=== PATIENT | female | born 1995 | race Caucasian/White ===

== ENCOUNTER 2022-09-24 22:26 | Emergency (ER) | payer MEDICAID ==
[~2022-09-24] VITALS: Ht 158.8 cm; Wt 90.9 kg
[2022-09-24 22:51] VITALS: BP 122/64; PULSE 94; RESP 22; TEMP 98.3; O2SAT 97
--- NOTE | 2022-09-24 22:54 | NUR ---
PT IN THE BATHROOM FOR URINE COLLECTION
--- NOTE | 2022-09-24 23:00 | NUR ---
PT TO LOBBY
--- NOTE | 2022-09-24 23:09 | NUR ---
URINE TO LAB
[2022-09-24 23:33] LABS: APPEARANCE,URINE CLEAR (CLEAR); BILIRUBIN,URINE NEGATIVE (NEGATIVE); BLOOD, URINE NEGATIVE (NEGATIVE); COLOR,URINE YELLOW (YELLOW); LEUKOCYTE ESTERASE ,URINE 2+ (NEGATIVE); NITRITE, URINE NEGATIVE (NEGATIVE); UGLUCOSE NEGATIVE (NEGATIVE)
[2022-09-24 23:38] LABS: RBC,URINE 0-5 /HPF (0-5)
[2022-09-25] MEDS ORDERED: ONDANSETRON 4 MG/2 ML VIAL IVP ONE (01:25)
[2022-09-25] MEDS ORDERED: MORPHINE SULFATE 4 MG/ML SYR IVP ONE (01:25)
[2022-09-25] MEDS ORDERED: NACL 0.9% 1,000 ML IV ONE (01:25)
--- NOTE | 2022-09-25 01:40 | NUR ---
c/o right sided flank pain 11/24 and n/v that started today. denies pmhx or allergies.
[2022-09-25 01:42] LABS: BASOPHILS # (AUTO) 0.1 K/uL (0.00-0.22); BASOPHILS % (AUTO) 1.2 % (0.0-2.0); EOSINOPHILS # (AUTO) 0.2 K/uL (0-0.4); EOSINOPHILS % (AUTO) 2.1 % (0.0-4.0); HEMATOCRIT 36.8 % (36-48); LYMPHOCYTES # (AUTO) 2.6 K/uL (2.5-16.5); LYMPHOCYTES % (AUTO) 27.3 % (20.5-51.1); MEAN CORPUSCULAR HEMOGLOBIN 25 pg (27-31); MEAN CORPUSCULAR HGB CONC 33 g/dL (33-37); MONOCYTES # (AUTO) 0.6 K/uL (0.8-1.0); MONOCYTES % (AUTO) 6.2 % (1.7-9.3); NEUTROPHILS # (AUTO) 5.9 K/uL (1.8-7.7); NEUTROPHILS % (AUTO) 63.2 % (42.2-75.2); PLATELET COUNT (AUTO) 240 K/uL (140-450); RED CELL DISTRIBUTION WIDTH 16.3 % (11.6-13.7); WHITE BLOOD COUNT (AUTO) 9.4 K/uL (4.8-10.8)
[2022-09-25 02:00] LABS: ALBUMIN 4.2 g/dL (3.4-5.0); CARBON DIOXIDE 28.7 mmol/L (21-32); CREATININE 0.9 mg/dL (0.6-1.3); POTASSIUM 3.7 mmol/L (3.5-5.1); TOTAL BILIRUBIN 0.3 mg/dL (0.0-1.0)
[2022-09-25] MEDS ORDERED: KETOROLAC 15 MG/ML VIAL IVP ONE (05:40)
[2022-09-25] MEDS ORDERED: CEPH-588 PO (05:58)
[2022-09-25] MEDS ORDERED: NAPR-54 PO (05:58)
--- NOTE | 2022-09-25 06:16 | NUR ---
Patient discharged with v/s stable. Written and verbal after care instructions given and explained. Patient verbalized understanding. Ambulatory with steady gait. All questions addressed prior to discharge. Advised to follow up with PMD. Addendum: 09/25/22 at 0618 by [email or web address] Rx of keflex and naproxen given. Patient educated on indication of medication including possible reaction and side effects. Opportunity to ask questions provided and answered.
[2022-09-25 06:17] VITALS: BP 114/74; PULSE 80; RESP 18; TEMP 98.3; O2SAT 98
== END 2022-09-25 06:17 | disposition home or self-care (01) ==
LOC: MED 22:26 → EDSEX 22:26 → MED 09-25 06:17
DX: N39.0 Urinary tract infection, site not specified (principal); Z79.899 Other long term (current) drug therapy
CPT/HCPCS: 36415; 80053; 81001; 81025; 83690; 85025; 87086; 96374; 96375; 99285; J1885; J2270; J2405; J7030

== ENCOUNTER 2023-01-04 12:06 | Emergency (ER) | payer MEDICAID, OTHER ==
[~2023-01-04] VITALS: Ht 160 cm; Wt 88.9 kg
[~2023-01-04 12:06] MED LIST: CEPH-588 PO; NAPR-54 PO
[2023-01-04 12:46] VITALS: BP 121/76; PULSE 115; RESP 20; TEMP 98.7; O2SAT 99
[2023-01-04 14:38] LABS: FLU A ANTIGEN negative (NEGATIVE); FLU B ANTIGEN negative (NEGATIVE)
[2023-01-04] MEDS ORDERED: BENZ100C6 PO (14:47)
[2023-01-04] MEDS ORDERED: NIRM1TAB5 PO (14:47)
[2023-01-04] MEDS ORDERED: IBUP-2213 PO (14:47)
[2023-01-04] MEDS ORDERED: ALBU0.0912 IH (14:47)
== END 2023-01-04 14:49 | disposition home or self-care (01) ==
LOC: MED 12:06
DX: U07.1 COVID-19 (principal); Z79.899 Other long term (current) drug therapy
CPT/HCPCS: 71045; 99284

== ENCOUNTER 2023-02-20 10:06 | Emergency (ER) | payer OTHER ==
[~2023-02-20] VITALS: Ht 162.6 cm; Wt 89.4 kg
[~2023-02-20 10:06] MED LIST changes: +ALBU0.0912 IH; +BENZ100C6 PO; +IBUP-2213 PO; +NIRM1TAB5 PO
[2023-02-20 10:13] VITALS: BP 96/66; PULSE 74; RESP 16; TEMP 98; O2SAT 98
[2023-02-20] MEDS ORDERED: NACL 0.9% 1,000 ML IV ONE (11:15)
[2023-02-20] MEDS ORDERED: ONDANSETRON 4 MG/2 ML VIAL IVP ONE (11:15)
[2023-02-20] MEDS ORDERED: MORPHINE SULFATE 4 MG/ML SYR IVP ONE (11:15)
[2023-02-20 11:32] VITALS: TEMP 98
[2023-02-20 11:38] LABS: BASOPHILS % (AUTO) 0.5 % (0.0-2.0); EOSINOPHILS # (AUTO) 0.1 K/uL (0-0.4); EOSINOPHILS % (AUTO) 1.1 % (0.0-4.0); HEMATOCRIT 37.6 % (36-48); HEMOGLOBIN 12.2 g/dL (12.0-16.0); LYMPHOCYTES # (AUTO) 2.1 K/uL (2.5-16.5); LYMPHOCYTES % (AUTO) 27.9 % (20.5-51.1); MEAN CORPUSCULAR HEMOGLOBIN 25 pg (27-31); MEAN CORPUSCULAR HGB CONC 32 g/dL (33-37); MEAN CORPUSCULAR VOLUME 75.8 fL (80-94); MONOCYTES # (AUTO) 0.5 K/uL (0.8-1.0); MONOCYTES % (AUTO) 7.4 % (1.7-9.3); NEUTROPHILS # (AUTO) 4.7 K/uL (1.8-7.7); NEUTROPHILS % (AUTO) 63.1 % (42.2-75.2); PLATELET COUNT (AUTO) 254 K/uL (140-450); RED BLOOD CELL COUNT(AUTO) 4.95 MIL/uL (4.20-5.40); RED CELL DISTRIBUTION WIDTH 17.4 % (11.6-13.7); WHITE BLOOD COUNT (AUTO) 7.4 K/uL (4.8-10.8)
[2023-02-20 11:52] LABS: ANION GAP 10.4 (8-16); CARBON DIOXIDE 28.5 mmol/L (21-32); CREATININE 0.8 mg/dL (0.6-1.3); POTASSIUM 3.9 mmol/L (3.5-5.1)
[2023-02-20 11:53] LABS: ALBUMIN 3.7 g/dL (3.4-5.0); BILIRUBIN,DIRECT 0.1 mg/dL (0.0-0.3); TOTAL BILIRUBIN 0.3 mg/dL (0.0-1.0); TOTAL PROTEIN, SERUM 8.1 g/dL (6.4-8.2)
[2023-02-20 14:01] LABS: APPEARANCE,URINE CLEAR (CLEAR); BILIRUBIN,URINE NEGATIVE (NEGATIVE); BLOOD, URINE NEGATIVE (NEGATIVE); COLOR,URINE YELLOW (YELLOW); LEUKOCYTE ESTERASE ,URINE 2+ (NEGATIVE); NITRITE, URINE NEGATIVE (NEGATIVE); PROTEIN,URINE NEGATIVE (NEGATIVE); UGLUCOSE NEGATIVE (NEGATIVE); UROBILINOGEN,URINE 0.2 EU/dL (0.2 - 1)
[2023-02-20 14:25] LABS: BACTERIA,URINE 2+ /HPF (None Seen); RBC,URINE 0-5 /HPF (0-5); SQUAMOUS EPITHELIAL CELL,UR 4-10 (MOD) /LPF (0-3 (FEW))
[2023-02-20 14:26] LABS: MUCUS,URINE None Seen /LPF (None Seen)
[2023-02-20] MEDS ORDERED: NAPR-54 PO (14:30)
[2023-02-20] MEDS ORDERED: BEN10 PO (14:30)
[2023-02-20] MEDS ORDERED: ONDA-188 PO (14:30)
[2023-02-20] MEDS ORDERED: KETOROLAC 30 MG/ML VIAL IVP ONE (14:35)
[2023-02-20 15:00] VITALS: BP 109/79; PULSE 69; RESP 18; O2SAT 98
== END 2023-02-20 14:50 | disposition home or self-care (01) ==
LOC: MED 10:06
DX: A08.4 Viral intestinal infection, unspecified (principal); Z90.49 Acquired absence of other specified parts of digestive tract; Z79.899 Other long term (current) drug therapy; Z79.1 Long term (current) use of non-steroidal anti-inflammatories (NSAID); Z79.2 Long term (current) use of antibiotics
CPT/HCPCS: 36415; 76705; 80048; 80076; 81001; 81025; 83690; 85025; 87086; 96361; 96374; 96375; 99285; J1885; J2270; J2405; J7030; Q0092